=== PATIENT | female | born 1960 | race Caucasian/White ===

== ENCOUNTER → 2018-04-14 | Day surgery (SDC) | payer BC ==
--- NOTE | 2018-04-17 17:29 | PATH ---
Surgical Pathology Report Patient Name: LARRY CASTANEDA [facility]. Rec. #: [id number] /Age/Gender: 1960 (Age: 57) / F Account: [id number] Location: RADIOLOGY [facility] Taken: 04/14/2018 Received: 04/14/2018 Reported: 04/17/2018 Physicians: Victor Hugo Reddy M.D. Specimen(s) Received 0.5 CM LESION AT 1:00 LEFT BREAST Clinical History And fifth Nonpalpable lesion Ultrasound findings: Probably benign Final Diagnosis 0.5 cm lesion in 1:00 left breast, ultrasound guided core biopsy: Ductal carcinoma in situ (DCIS), cribriform pattern, low nuclear grade. Calcifications present in the DCIS. Results of Estrogen Receptor (ER) and Progesterone Receptor (KS) studies performed on block "1" at [facility] are as follows: ER (clone [id number] mouse monoclonal antibody by Leica): 100% nuclear staining with strong intensity (Positive). KS (clone16 mouse monoclonal antibody by Leica): 96% nuclear staining with strong intensity (Positive). Positive and negative controls (internal if applicable) show appropriate results. Formalin fixation and cold ischemic times are within current ASCO/CAP recommendations for ER, KS and Her2 testing. Intradepartmental case reviewed with consensus on diagnosis. This case was discussed with Dr. Adkins on April 17, 2018. Electronically Signed Gerald Rocha M.D. Gross Description Received in formalin labeled "left 1:00," are 6 kumar-yellow, cylindrical portions of fibroadipose tissue ranging from 0.3-0.7 cm in length and averaging 0.1 cm in diameter. The specimen is submitted in toto in one cassette. Time to formalin fixation: Less than one minute Total formalin fixation time: Approximately 8 hours. /04/14/2018 saudi04/14/2018
== END | disposition home or self-care (01) ==
LOC: JRADUS-SUR 09:39
PROC: 0HBU3ZX Excision of Left Breast, Percutaneous Approach, Diagnostic (ICD-10-PCS; principal; 2018-04-14)
DX: D05.92 Unspecified type of carcinoma in situ of left breast (principal); N63.21 Unspecified lump in the left breast, upper outer quadrant
CPT/HCPCS: 19083; 77065-TC; 87899; 88305-TC; A4648

== ENCOUNTER 2018-05-20 09:53 | Day surgery (SDC) | payer BC ==
[2018-05-19 09:51] VITALS: BMI 30.9
--- NOTE | 2018-05-19 09:55 | HP ---
Admitting History and Physical - Primary Care Physician PCP: Rohit Fernando - Admission Chief Complaint: Left breast DCIS History of Present Illness: 57 year old nulliparous postmenapausal female who underwent screening mammogram 03/15/2018 showing asymetry left upper outer region. Us showed 5mm irregular density 1:00 aspect 10 cm FN. Left breast Us core bx at 1:00 04/2018 showed low grade DCIS Breast MRI showed newly diagnosed left breast cancer and suspicious enhancement right breast 10:00 not seen on targeted Us. Right breast MRI core bx in this area was benign. 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) Cardiovascular: Yes: HTN, Hyperlipdemia Gastrointestinal: Yes: GERD - Past Surgical History Past Surgical History: Yes: Cholecystectomy (2000) Additional Past Surgical History: spinal fusion 2011 bunionectomy and fusion 2016 - Smoking History Smoking history: Former smoker Have you smoked in the past 12 months: No - Alcohol/Substance Use Hx Alcohol Use: Yes (social) Home Medications - Allergies Allergies/Adverse Reactions: Allergies Allergy/AdvReac Type Severity Reaction Status Date / Time aspirin Allergy Verified 05/19/18 09:57 - Home Medications Home Medications: Ambulatory Orders Cholecalciferol (Vitamin D3) [Vitamin D3] 1,000 unit PO DAILY 05/19/18 Duloxetine HCl [Cymbalta] 20 mg PO DAILY 05/19/18 Esomeprazole Magnesium [Nexium 24Hr] 20 mg PO BID 05/19/18 Lisinopril 20 mg PO DAILY 05/19/18 [place]-3 Fatty Acids/Fish Oil [Fish Oil 1,000 mg Capsule] 1 each PO BID 05/19/18 Rosuvastatin Calcium [Crestor] 20 mg PO HS 05/19/18 Family Disease History - Family Disease History Family Disease History: CA: Father (lung ca 60), Sister (vulva 49) Physical Examination Constitutional: Yes: Well Nourished Breast(s): Yes: Other (ptotic D cup breasts, no palpable masses or adenopathy bilaterally,+ post bx changes bilaterally) Problem List - Problems (1) Ductal carcinoma in situ (DCIS) of left breast Code(s): D05.12 - INTRADUCTAL CARCINOMA IN SITU OF LEFT BREAST Assessment/Plan Left breast wide excision with mammogram needle localization
[2018-05-20 10:40] LABS: ALBUMIN 4.4 g/dl (3.5-5.0); ALK PHOS 68 U/L (32-92); ANION GAP 7 (8-16); BILIRUBIN,TOTAL 0.3 mg/dl (0.2-1.0); BLOOD UREA NITROGEN 17 mg/dl (7-18); CALCIUM 9.3 mg/dl (8.4-10.2); CHLORIDE 101 mmol/L (98-107); CO2 28 mmol/L (22-28); CREATININE 0.7 mg/dl (0.6-1.3); GLUCOSE,RANDOM 119 mg/dl (74-106); POTASSIUM 3.9 mmol/L (3.5-5.1); SGOT/AST 31 U/L (10-42); SGPT/ALT 36 U/L (10-40); SODIUM 136 mmol/L (136-145); TOT PROT 8.1 g/dl (6.4-8.3)
[2018-05-20] MEDS ORDERED: SUCCINYLCHOLINE CHLORIDE 200 MG/10 ML VIAL ONE (12:51)
[2018-05-20] MEDS ORDERED: MIDAZOLAM HCL 2 MG/2 ML SINGLE DOSE VIAL ONE ×2 (12:51→13:31)
[2018-05-20] MEDS ORDERED: PROPOFOL 20 ML ONE ×2 (12:51)
[2018-05-20] MEDS ORDERED: LIDOCAINE HCL/PF 2% SDV 5ML VIAL ONE (12:53)
[2018-05-20] MEDS ORDERED: LIDOCAINE HCL 1%, 10 MG/ML (20ML VIAL) ONE ×2 (13:05→13:59)
[2018-05-20] MEDS ORDERED: ONDANSETRON 4 MG/2 ML VIAL IVPUSH PRN (13:16)
[2018-05-20] MEDS ORDERED: DEXTROSE 5%-0.45% SALINE 1,000 ML IV SCH (13:30)
[2018-05-20] MEDS ORDERED: BUPIVACAINE HCL 0.25% 125 MG/50 ML VIAL ONE (14:26)
[2018-05-20 16:41] VITALS: BP 123/70; PULSE 74; TEMP 98
--- NOTE | 2018-05-20 22:40 | OP ---
DATE OF OPERATION: 05/20/2018 PREOPERATIVE DIAGNOSIS: Left breast ductal carcinoma in situ. POSTOPERATIVE DIAGNOSIS: Left breast ductal carcinoma in situ. PROCEDURE: Left breast partial mastectomy with mammographic needle localization. ANESTHESIA: Local with IV sedation. PRIMARY SURGEON: Junie Fernando M.D. BINDER COVERSTITCH: Mannie Smith COMPLICATIONS: There were no complications. DESCRIPTION OF PROCEDURE: Briefly, the patient is a 57-year-old nulliparous postmenopausal white female with no family history of breast or ovarian cancer. She was found to have some asymmetry on screening mammography in March of 2018 in the upper outer aspect of the left breast with ultrasound showing a small 5-mm density. Ultrasound guided core biopsy performed in April of 2018 shows low-grade DCIS which was ER/UT positive. An MRI showed this to be localized. A separate area of enhancement in the right breast was seen. An MRI core biopsy of that was benign. She was advised on undergoing a left breast partial mastectomy without lavonne evaluation, given the low-grade nature of the DCIS. She was brought in for the procedure on May 20, 2018. She underwent a needle localization in radiology and was brought to the holding area. In the holding area, site verification was made, and informed consent was obtained. She was brought into the operating room and laid on the OR table in a supine position. Venodynes were placed on the lower extremities. She did not receive IV antibiotics given the small nature of the excision. She was given IV sedation and the left breast was sterilely prepped and draped in the usual fashion with the wire prepped in the field. Timeout was then performed prior to beginning the incision. Then 1% lidocaine was given directly under the skin around the needle localization wire. A curvilinear incision was made directly over the needle localization wire. Dissection was undertaken around the wire. The breast tissue was completely removed from around the wire with the wire intact in the middle of the specimen. The specimen is oriented with a long lateral, short superior suture and specimen radiographs showed removal of the clip in question. Hemostasis was achieved. Separate margins were then taken on the superior, inferior, medial lateral, deep, and anterior margins with suture margin and biopsy cavity side. Each of these specimens was sent separately to pathology as margins. At this point, the 4 x 3 cm tissue transfer was accomplished by undermining the breast tissue and bringing in a 4 x 3 cm area of breast tissue to close the defect. The breast tissue was reapproximated using 2-0 plain suture. The skin was closed using interrupted 3-0 deep dermal Vicryl suture and a running 4-0 subcuticular Biosyn suture. Mastisol, Steri-Strips were applied over the wounds, and compressive dressing placed over this. She was placed in a surgical bra. The patient was awake and alert at the end of the procedure and was brought to the post anesthesia care unit in stable condition. She will be discharged home the same day when her discharge criteria are met. She should follow up in the office in 1 week for formal wound pathology check. JUNIE FERNANDO M.D. [id number]
--- NOTE | 2018-05-27 10:14 | PATH ---
Surgical Pathology Report Patient Name: LARRY CASTANEDA [facility]. Rec. #: [id number] /Age/Gender: 1960 (Age: 57) / F Account: [id number] Location: [facility] Taken: 05/20/2018 Received: 05/21/2018 Reported: 05/27/2018 Physicians: Rohit Fernando M.D. Specimen(s) Received A: LEFT BREAST WIDE EXCISION B: LEFT BREAST SUPERIOR MARGIN C: LEFT BREAST LATERAL MARGIN D: LEFT BREAST INFERIOR MARGIN E: LEFT BREAST MEDIAL MARGIN F: LEFT BREAST DEEP MARGIN G: LEFT BREAST ANTERIOR MARGIN Clinical History DCIS Final Diagnosis A. BREAST, LEFT, WIDE EXCISION: DUCTAL CARCINOMA IN SITU (DCIS), CRIBRIFORM AND SOLID TYPE, INTERMEDIATE NUCLEAR GRADE WITH FOCAL NECROSIS AND ASSOCIATED CALCIFICATIONS. THE LARGEST CONTIGUOUS FOCUS OF DCIS MEASURES 2 MM IN GREATEST DIMENSION, MICROSCOPICALLY. DCIS IS PRESENT IN FIVE OF NINE SLIDES (5/9). DCIS IS CLOSE TO (< 1 MM) THE DEEP MARGIN AT A FEW FOCI. SEE SPECIMENS B-G FOR FINAL MARGINS. PRIOR BIOPSY SITE CHANGES ARE PRESENT. PATHOLOGIC STAGE (pTNM]: pTis (DCIS) pNx. SEE ALSO DCIS CASE SUMMARY BELOW. B. BREAST, LEFT, SUPERIOR MARGIN, EXCISION: BENIGN FIBROADIPOSE TISSUE. C. BREAST, LEFT, LATERAL MARGIN, EXCISION: BENIGN FIBROADIPOSE TISSUE. D. BREAST, LEFT, INFERIOR MARGIN, EXCISION: FOCAL DCIS, INTERMEDIATE NUCLEAR GRADE, PRESENT CLOSE TO (< 1 MM) THE NEW MARGIN. DCIS IS PRESENT IN TWO OF FOUR SLIDES (2/4). E. BREAST, LEFT, MEDIAL MARGIN, EXCISION: FOCAL ATYPICAL DUCTAL HYPERPLASIA (ADH). F. BREAST, LEFT, DEEP MARGIN, EXCISION: BENIGN FIBROADIPOSE TISSUE AND SKELETAL MUSCLE. G. BREAST, LEFT, ANTERIOR MARGIN, EXCISION: BENIGN PREDOMINANTLY FATTY BREAST TISSUE. Comments DCIS of the Breast: Surgical Pathology Cancer Case Summary (Based on AJCC TNM 8 th edition) Procedure _X_ Excision (less than total mastectomy) Specimen Laterality _X_ Left Size (Extent) of DCIS Estimated size (extent) of DCIS (greatest dimension using gross and microscopic evaluation): at least (millimeters) 2 mm Number of blocks with DCIS: 7 Number of blocks examined: 27 (based on specimens A-G) Note: The size (extent) of DCIS is an estimation of the volume of breast tissue occupied by DCIS. Histologic Type _X_ Ductal carcinoma in situ Architectural Patterns _X_ Cribriform _X_ Solid Nuclear Grade _X_ II (intermediate) Necrosis _X_ Present, focal (small foci or single cell necrosis) Margins _X_ Uninvolved by DCIS Distance from closest margin (millimeters): focally < 1 mm from final inferior margin (D) Regional Lymph Nodes _X_ No lymph nodes submitted or found Pathologic Stage Classification (pTNM, AJCC 8th Edition) Primary Tumor (pT) _X_ pTis (DCIS): Ductal carcinoma in situ Regional Lymph Nodes (pN) (pN) : _X_ pNx Microcalcifications _X_ Present in DCIS Biomarker Studies Results of ER and SC studies performed on prior biopsy ([id number]) at [facility] are as follows: ER (clone 6F11 mouse monoclonal antibody by Leica): 100 % nuclear staining with strong intensity (Positive). SC (clone16 mouse monoclonal antibody by Leica) : 96 % nuclear staining with strong intensity (Positive). Electronically Signed Lida Fowler M.D. Gross Description A. Received in formalin, labeled "left breast wide excision," is a 5.5 x 4.8 x 2.8 cm. kumar-yellow, irregular, portion of fibroadipose tissue with a needle localization wire present. There is a short suture marking the superior aspect and a long suture marking the lateral aspect, per the surgeon. There is no skin or nipple present. The specimen is inked as follows: Superior and lateral blue; medial yellow; inferior green; anterior red; deep black. The specimen is serially sectioned from superior to inferior. Sectioning reveals a 2.4 x 2.3 x 1.8 cm focus of firm fibrous tissue abutting the medial margin. Wet [employer] Glass sections are submitted in 9 cassettes as follows: 1-superior margin; 5-6-[id number] submitted fibrous tissue (each with medial, anterior and deep margins); 8-lateral margin; 9-inferior margin. Time to formalin fixation: 1 minute Total formalin fixation time: Approximately 28 hours. B. Received in formalin labeled "left breast superior margin," is a 2.8 x 1.8 x 1.1 cm portion of fibroadipose tissue with a suture presumably marking the biopsy cavity side. The presumed new margin is inked blue and the specimen is serially sectioned. The specimen is entirely submitted in 3 cassettes. C. Received in formalin labeled "left breast lateral margin," is a 2.5 x 1.3 x 1.0 cm portion of fibroadipose tissue with a suture presumably marking the biopsy cavity side. The new margin is inked blue and the specimen is serially sectioned. The specimen is entirely submitted in 3 cassettes. D. Received in formalin labeled "left breast inferior margin," is a 3.4 x 2.2 x 1.0 cm portion of fibroadipose tissue with a suture presumably marking the biopsy cavity side. The new margin is inked blue and the specimen is serially sectioned. The specimen is entirely submitted in 4 cassettes. E. Received in formalin labeled "left breast medial margin," is a 2.8 x 2.6 x 1.0 cm portion of fibroadipose tissue with a suture presumably marking the biopsy cavity side. The new margin is inked blue and the specimen is serially sectioned. The specimen is entirely submitted in 3 cassettes. F. Received in formalin labeled "left breast deep margin," is a 2.2 x 2.1 x 0.7 cm portion of fibroadipose tissue with a suture presumably marking the biopsy cavity side. The presumed new margin is inked blue and the specimen is serially sectioned. The specimen is entirely submitted in 2 cassettes. G. Received in formalin labeled "left breast anterior margin," is a 2.7 x 2.3 x 0.8 cm portion of fibroadipose tissue with a suture presumably marking the biopsy cavity side. The presumed new margin is inked blue and the specimen is serially sectioned. The specimen is entirely submitted in 3 cassettes. 05/21/2018 [facility]/21/2018
== END 2018-05-20 16:35 | disposition home or self-care (01) ==
LOC: FASU 09:53
PROVIDERS: ATTEND Surgery Surgical Oncology
PROC: 0HBU0ZZ Excision of Left Breast, Open Approach (ICD-10-PCS; principal; 2018-05-20 14:38)
DX: D05.12 Intraductal carcinoma in situ of left breast (principal)
CPT/HCPCS: 19281; 36415; 80053; 88307-TC; 94760

== ENCOUNTER 2018-05-29 13:25 | Day surgery (SDC) | payer BC ==
--- NOTE | 2018-05-28 09:21 | HP ---
Admitting History and Physical - Primary Care Physician PCP: Rohit Fernando - Admission Chief Complaint: left breast cancer History of Present Illness: 57 yo female S/P left WE for a DCIS on 05/20/2018 was noted to have a positive inferior margin on final path. Patient is now presenting for reexcison of positive margin. 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) Cardiovascular: Yes: HTN, Hyperlipdemia Gastrointestinal: Yes: GERD - Past Surgical History Past Surgical History: Yes: Cholecystectomy (2000) Additional Past Surgical History: cervical spine fusion 2012 bunionectomy and fusion 2017 - Smoking History Smoking history: Former smoker Have you smoked in the past 12 months: No If you are a former smoker, when did you quit?: 15 YEARS MIKE - Alcohol/Substance Use Hx Alcohol Use: Yes (social) Home Medications - Allergies Allergies/Adverse Reactions: Allergies Allergy/AdvReac Type Severity Reaction Status Date / Time aspirin Allergy Verified 05/19/18 09:57 naproxen [From Aleve] AdvReac Severe PALPITATION Verified 05/20/18 14:08 S - Home Medications Home Medications: Ambulatory Orders Cholecalciferol (Vitamin D3) [Vitamin D3] 1,000 unit PO DAILY 05/19/18 Duloxetine HCl [Cymbalta] 20 mg PO DAILY 05/19/18 Esomeprazole Magnesium [Nexium 24Hr] 20 mg PO BID 05/19/18 Lisinopril 20 mg PO DAILY 05/19/18 Rosuvastatin Calcium [Crestor] 20 mg PO HS 05/19/18 Oxycodone HCl/Acetaminophen [Percocet 5-325 mg Tablet] 1 - 2 tab PO Q6H PRN #14 tab MDD 6 05/20/18 Family Disease History - Family Disease History Family Disease History: CA: Father (lung ca 60), Sister (vulva 49) Review of Systems - Review of Systems Constitutional: reports: No Symptoms Cardiovascular: reports: No Symptoms Respiratory: reports: No Symptoms Physical Examination Constitutional: Yes: Well Nourished, Calm Breast(s): Yes: Other (Incision with steristrips in place. No erythema or discharge noted. No hematoma noted.) Problem List - Problems (1) Ductal carcinoma in situ (DCIS) of left breast Code(s): D05.12 - INTRADUCTAL CARCINOMA IN SITU OF LEFT BREAST Assessment/Plan Plan: Reexcison of positive left breast margin
[2018-05-28 09:38] VITALS: BMI 30.9
[2018-05-29] MEDS ORDERED: MIDAZOLAM HCL 2 MG/2 ML SINGLE DOSE VIAL ONE (14:49)
[2018-05-29] MEDS ORDERED: PROPOFOL 20 ML ONE ×2 (14:49→15:36)
[2018-05-29] MEDS ORDERED: ceFAZolin SODIUM 1 GM VIAL ONE (15:18)
[2018-05-29] MEDS ORDERED: KETOROLAC TROMETHAMINE 30 MG/1 ML VIAL ONE (15:18)
[2018-05-29] MEDS ORDERED: DEXAMETHASONE SOD PHOSPHATE 4 MG/1 ML VIAL ONE (15:18)
[2018-05-29] MEDS ORDERED: ONDANSETRON 4 MG/2 ML VIAL ONE (15:18)
[2018-05-29] MEDS ORDERED: LIDOCAINE HCL/PF 2% SDV 5ML VIAL ONE (15:18)
[2018-05-29] MEDS ORDERED: ePHEDrine SULFATE 50 MG/1 ML AMPULE ONE (15:29)
[2018-05-29] MEDS ORDERED: ONDANSETRON 4 MG/2 ML VIAL IVPUSH PRN ×2 (16:13→16:24)
[2018-05-29] MEDS ORDERED: DEXTROSE 5%-0.45% SALINE 1,000 ML IV SCH (16:15)
[2018-05-29 16:18] VITALS: TEMP 97.4
[2018-05-29] MEDS ORDERED: PROMETHAZINE HCL 25 MG/1 ML VIAL IVPUSH PRN (16:24)
[2018-05-29] MEDS ORDERED: oxyCODONE HCL 5 MG TABLET PO PRN ×2 (16:24)
[2018-05-29 16:46] VITALS: BP 108/62; PULSE 80
--- NOTE | 2018-05-29 23:42 | OP ---
DATE OF OPERATION: 05/29/2018 PREOPERATIVE DIAGNOSIS: Left breast ductal carcinoma in situ upper outer quadrant. POSTOPERATIVE DIAGNOSIS: Left breast ductal carcinoma in situ upper outer quadrant. PROCEDURE: Wide excision of left breast with reexcision of inferior margin. ANESTHESIA: Local with IV sedation. SURGEON: Junie Fernando M.D. COMMERCIAL LINES ACCOUNT EXECUTIVE: Mannie Ochoa COMPLICATIONS: There were no complications. DESCRIPTION OF PROCEDURE: Briefly, the patient is a 57-year-old nulliparous postmenopausal white female of [place] descent. She was found to have some asymmetry in the upper outer aspect of the left breast. An ultrasound showed a 5-mm density 10 cm from the nipple. Ultrasound core biopsy showed DCIS which was ER/IL positive. MRI showed a separate right breast enhancing mass which was biopsied and benign. She underwent a left breast partial mastectomy on May 06, 2018, which showed intermediate grade DCIS which was ER/IL positive, however the inferior margin was involved. She now presents for reexcision of the inferior margin. The patient was brought into ambulatory surgery on May 29, 2018. She was seen in the holding area and site verification was made, and informed consent was obtained. She was brought into the operating room and laid on the OR table in the supine position. Venodynes were placed on the lower extremities. She received a gram of Ancef prior to incision. She was given IV sedation. The left breast was thoroughly prepped and draped in the usual sterile fashion. 1% lidocaine was given directly around the previous wide excision site, and previous wide excision was opened. There was a little seroma which was aspirated. The biopsy cavity was easily found, and we removed some more tissue along the margin on the inferior aspect of the biopsy cavity. This was oriented with a suture marking the biopsy cavity side. Hemostasis was achieved. At this point, the wound was closed, again using a tissue transfer technique. The breast tissue reapproximated by swinging in some breast tissue, about a 3 x 4 area of breast tissue was brought into the wound, and the breast tissue was reapproximated using 2-0 plain suture. The skin was closed using interrupted 3-0 deep dermal Vicryl suture and a running 4-0 subcuticular Biosyn suture. Mastisol, Steri-Strips were applied over the wound with a compressive dressing placed over this. She was placed in a surgical bra postoperatively. All sponge, needle counts were correct. Estimated blood loss was minimal. She was awake and alert at the end of the procedure, and will be brought back to ambulatory surgery where she will be recovered and discharged home the same day. All sponge and needle counts were correct at the end of the case, and estimated blood loss was minimal. JUNIE FERNANDO M.D. [id number]
--- NOTE | 2018-06-02 16:29 | PATH ---
Surgical Pathology Report Patient Name: LARRY CASTANEDA [facility]. Rec. #: [id number] /Age/Gender: 1960 (Age: 57) / F Account: [id number] Location: [facility] Taken: 05/29/2018 Received: 05/29/2018 Reported: 06/02/2018 Physicians: Rohit Fernando M.D. Specimen(s) Received BREAST MASS Clinical History Left breast cancer Final Diagnosis BREAST, LEFT, INFERIOR MARGIN, EXCISION: BENIGN BREAST TISSUE WITH CHANGES OF PRIOR BIOPSY. Electronically Signed Cathryn Stubbs M.D. Gross Description Received in formalin labeled "left breast inferior margin," is a 3.4 x 2.0 x 1.2 cm portion of fibroadipose tissue with a suture marking the biopsy cavity side, per the surgeon. The new margin is inked blue and the specimen is serially sectioned. Sectioning reveals foci of white fibrous tissue. The specimen is entirely and sequentially submitted in 5 cassettes. /05/30/2018 saudi05/30/2018
== END 2018-05-29 16:45 | disposition home or self-care (01) ==
LOC: FASU 13:25
PROVIDERS: ATTEND Surgery Surgical Oncology
PROC: 0HBU0ZZ Excision of Left Breast, Open Approach (ICD-10-PCS; principal; 2018-05-29 15:00)
DX: D05.12 Intraductal carcinoma in situ of left breast (principal); I10 Essential (primary) hypertension; E78.5 Hyperlipidemia, unspecified; K21.9 Gastro-esophageal reflux disease without esophagitis; Z87.891 Personal history of nicotine dependence
CPT/HCPCS: 88307-TC

== ENCOUNTER 2024-07-02 04:54 | Day surgery (SDC) | payer BC ==
[2024-06-24 11:20] VITALS: BMI 31.9
[2024-07-02 09:41] VITALS: BP 120/60; PULSE 69; RESP 16; TEMP 98.2
== END 2024-07-02 09:43 | disposition home or self-care (01) ==
LOC: JASU-ENDO 04:54
PROVIDERS: ATTEND Internal Medicine Gastroenterology
PROC: 0DBL8ZX Excision of Transverse Colon, Via Natural or Artificial Opening Endoscopic, Diagnostic (ICD-10-PCS; principal; 2024-07-02 08:30)
DX: Z12.11 Encounter for screening for malignant neoplasm of colon (principal); D12.3 Benign neoplasm of transverse colon; K57.30 Diverticulosis of large intestine without perforation or abscess without bleeding
CPT/HCPCS: 88305-TC